=== PATIENT | female | born 2000 | race Hispanic/Latino ===

== ENCOUNTER 2024-03-19 04:02 | Emergency (ER) | payer BC ==
[~2024-03-19] VITALS: Ht 167.6 cm; Wt 121.6 kg
[2024-03-19 04:16] VITALS: TEMP 97.9
[2024-03-19] MEDS: MAG/ALUM/SIMETH 30 ML UDCUP PO ONE (04:22)
[2024-03-19] MEDS: LIDOCAINE HCL 2% VISCOUS 15 ML UDCUP PO ONE (04:22)
[2024-03-19] MEDS: PANTOPrazole 40 MG/VIAL IVP ONE (04:23)
[2024-03-19] MEDS: LACTATED RINGERS 1000ML 1,000 ML IV ONE (04:23)
[2024-03-19 04:25] LABS: BASOPHILS # (AUTO) 0.03 K/uL (0.00-0.20); BASOPHILS % (AUTO) 0.4 % (0.0-5.0); EOSINOPHILS # (AUTO) 0.24 K/uL (0.00-0.70); EOSINOPHILS % (AUTO) 3.3 % (0.0-8.0); HEMATOCRIT 37.5 % (36-48); IMMATURE GRANULOCYTE ABSOLUTE 0.02 K/uL (0-1); LYMPHOCYTES # (AUTO) 2.9 K/uL (1.0-4.8); LYMPHOCYTES % (AUTO) 39.8 % (21.0-51.0); MEAN CORPUSCULAR HEMOGLOBIN 23.8 pg (27.0-33.0); MEAN CORPUSCULAR HGB CONC 31.2 g/dL (32.0-36.0); MEAN CORPUSCULAR VOLUME 76.4 fL (79-99); MONOCYTES # (AUTO) 0.7 K/uL (0.1-1.0); MONOCYTES % (AUTO) 9.2 % (3.0-13.0); NEUTROPHILS # (AUTO) 3.5 K/uL (1.8-7.7); PLATELET COUNT (AUTO) 243 K/uL (130-400); RED BLOOD CELL COUNT(AUTO) 4.91 MIL/uL (4.00-5.50); RED CELL DISTRIBUTION WIDTH 15.2 % (11.0-15.5); WHITE BLOOD COUNT (AUTO) 7.4 K/uL (4.8-10.8)
--- NOTE | 2024-03-19 04:27 | ERN ---
General Chief Complaint: Abdominal Pain Stated Complaint: ABD PAIN, N/V Time Seen by MD: 04:04 Source: patient History of Present Illness Initial Comments Patient is a 23-year-old female coming in to be evaluated for epigastric pain. Patient states the pain woke her up in the morning at 2:00 a.m.. Patient states that she had this pain in two occasions in the past. No fever no chills. Allergies: Coded Allergies: No Known Allergies (Unverified Allergy, Unknown, 03/19/24) Past Medical History Past Medical History: No Pertinent History Past Surgical History: Other Surgical History Other: LEFT ANKLE Female( History) LMP: Jan 21, 2024 : 1 Para: 1 ROS Dictation CONSTITUTIONAL: No chills, no fever, no weakness, no diaphoresis, no malaise. HEAD/FACE: No signs of trauma. EENT: No eye pain, no blurred vision, no tearing, no double vision, no ear pain, no ear discharge, no nose pain, no nasal congestion, no throat pain, no throat swelling, no mouth pain. RESPIRATORY: No cough, no orthopnea, no SOB, no stridor, no wheezing. CARDIOVASCULAR: No chest pain, no edema, no palpitations, no syncope. GASTROINTESTINAL/ABDOMINAL: No abdominal pain, no constipation, no diarrhea, no nausea, no vomiting. GENITOURINARY: No abnormal discharge, no dysuria, no frequent urination, no hematuria. No complaints of pain in the genitals. MUSCULOSKELETAL: No back pain, no gout, no joint pain, no joint swelling, no muscle pain, no muscle stiffness, no neck pain. INTEGUMENTARY: No change in color, no change in hair/nails, no dryness, no lesion, no lumps, no rash. NEUROLOGICAL/PSYCH: No anxiety, not depressed, no emotional problem, no headache, no numbness, no pre-existing deficit, no history of seizures, no tremors, no weakness. HEMATOLOGIC/LYMPHATIC: Not anemic, no history of blood clots, no apparent bleeding, no bruising, glands not swollen. All Systems Negative, Except as Noted. Physical Exam Physical Exam Dictation VITAL SIGNS: Reviewed. GENERAL APPEARANCE: Alert, oriented x3, no acute distress, obese. HEAD AND FACE: Non-traumatic. EYES: PERRL, pink conjunctivas, eyelid no trauma, anterior chamber clear. EARS: Pinnas intact and no signs of trauma or erythema. Ear canals clear and no discharge. TMs no erythema. NOSE: No discharge, no bleeding. OROPHARYNX: Mouth normal, teeth no caries, tongue pink. Pharynx clear, no erythema. Tonsils no exudates, no abscesses noted. Mucous membrane moist. NECK: Supple, non-tender, no thyromegaly, no masses, no JVD, no bruits. BREAST: Deferred. CHEST: No tenderness, no crepitus, no paradoxical movement, no retractions. LUNGS: Clear, well-ventilated, symmetric, no rales, no wheezing, no rhonchi, no stridor, good breath sounds bilaterally. HEART: Regular rate, regular rhythm, no murmur, no gallops. VASCULAR: No peripheral edema. ABDOMEN: Soft, positive bowel sounds, nondistended, epigastric discomfort on palpation RECTAL: Deferred. GENITAL: Deferred. NEUROLOGICAL: Normal speech, gross motor function intact, gross sensory function intact. MUSCULOSKELETAL: Neck nontender, full range of motion, back nontender, full range of motion. EXTREMITIES: Nontender, full range of motion. SKIN: Color pink, dry, no turgor, no rash, no lacerations, no abrasions, no contusions. LYMPHATICS: Deferred. Results Laboratory and Microbiology Lab and Micro Result Laboratory Tests Test 03/19/24 04:12 03/19/24 04:29 White Blood Count 7.4 K/uL (4.8-10.8) Red Blood Count 4.91 MIL/uL (4.00-5.50) Hemoglobin 11.7 g/dL (12.0-16.0) L Hematocrit 37.5 % (36-48) Mean Corpuscular Volume 76.4 fL (79-99) L Mean Corpuscular Hemoglobin 23.8 pg (27.0-33.0) L Mean Corpuscular Hemoglobin Concent 31.2 g/dL (32.0-36.0) L Red Cell Distribution Width 15.2 % (11.0-15.5) Platelet Count 243 K/uL (130-400) Mean Platelet Volume 10.5 fL (7.5-10.5) Immature Granulocyte % (Auto) 0.3 % (0-1) Neutrophils (%) (Auto) 47.0 % (40.0-77.0) Lymphocytes (%) (Auto) 39.8 % (21.0-51.0) Monocytes (%) (Auto) 9.2 % (3.0-13.0) Eosinophils (%) (Auto) 3.3 % (0.0-8.0) Basophils (%) (Auto) 0.4 % (0.0-5.0) Neutrophils # (Auto) 3.5 K/uL (1.8-7.7) Lymphocytes # (Auto) 2.9 K/uL (1.0-4.8) Monocytes # (Auto) 0.7 K/uL (0.1-1.0) Eosinophils # (Auto) 0.24 K/uL (0.00-0.70) Basophils # (Auto) 0.03 K/uL (0.00-0.20) Absolute Immature Granulocyte (auto 0.02 K/uL (0-1) Nucleated Red Blood Cells 0.0 % (0.0-0.19) Red Blood Cell Morphology See comments Sodium Level 135 mmol/L (136-145) L Potassium Level 3.7 mmol/L (3.5-5.1) Chloride Level 103 mmol/L (101-111) Carbon Dioxide Level 27 mmol/L (21-32) Blood Urea Nitrogen 17 mg/dL (7-18) Creatinine 0.9 mg/dL (0.5-1.0) Glomerular Filtration Rate Calc 91 mL/min (>90) Random Glucose 111 mg/dL (70-105) H Total Calcium 8.9 mg/dL (8.5-10.1) Total Bilirubin 0.3 mg/dL (0.2-1.0) Aspartate Amino Transf (AST/SGOT) 23 U/L (10-37) Alanine Aminotransferase (ALT/SGPT) 38 U/L (12-78) Alkaline Phosphatase 95 U/L (50-136) Total Protein 7.6 g/dL (6.0-8.3) Albumin 3.8 g/dL (3.5-5.0) Lipase 37 U/L (16-77) Urine Color YELLOW (YELLOW) Urine Appearance CLOUDY (CLEAR) H Urine pH 6.0 (5.0-8.0) Urine Specific [place] 1.034 (1.001-1.031) Urine Protein 30 mg/dL (NEGATIVE) H Urine Glucose (UA) NEGATIVE mg/dL (NEGATIVE) Urine Ketones NEGATIVE mg/dL (NEGATIVE) Urine Occult Blood NEGATIVE (NEGATIVE) Urine Nitrate NEGATIVE (NEGATIVE) Urine Bilirubin NEGATIVE mg/dL (NEGATIVE) Urine Urobilinogen 0.2 mg/dL (0.2-1.0) Urine Leukocyte Esterase 75 Gerry/uL (NEGATIVE) H Urine HCG, Qualitative NEGATIVE (NEGATIVE) Urine Opiates Screen NEGATIVE (NEGATIVE) Urine Barbiturates Screen NEGATIVE (NEGATIVE) Urine Phencyclidine Screen NEGATIVE (NEGATIVE) Urine Amphetamines Screen NEGATIVE (NEGATIVE) Urine Benzodiazepines Screen NEGATIVE (NEGATIVE) Urine Cocaine Screen NEGATIVE (NEGATIVE) Urine Marijuana (THC) Screen NEGATIVE (NEGATIVE) Labs Reviewed?: Yes EKG/XRAY/US/CT/MRI EKG Comment 03/19/2024 time 4:18 a.m. Ventricular rate [address] Normal sinus rhythm No ST wave elevation or depression [place] 142 MDM MDM: Differential diagnosis:uti, gastrtitis Rationale: Tests considered and ordered secondary to shared decision making inc lude: Previous outside records reviewed: Old ER visits. Risk of complication and/or morbidity or mortality of patient management: None Medications-Per medication reconciliation Need for hospitalization: Patient does not meet criteria for hospitalization. Need for emergency major/minor surgery: No There are no social concerns with this patient. Prescription drug management Prescriptions will include symptomatic care Patient's prior external medical records from other ER visits were reviewed by me as indicated. Prior testing and results from previous visits were reviewed. Prior tests were taken into account with medical decision making and resource utilization, independent historian/historians were used to obtain complete medical history. I independently interpreted the test that were performed, results were reviewed by me and considered findings on radiology if ordered. Medical management and examination interpretation discussions were had by me with other qualified healthcare professionals as indicated for the patient's care. Patient is a 23-year-old female coming in to be evaluated for epigastric pain. Laboratory workup negative except for a UTI. Patient will be discharged with oral antibiotics as well as Protonix for gastritis. She will be discharged in stable condition, I advised her appropriate follow up with PCP in 1-2 days for ED Course Orders Procedure Category Date Status Time Cbc With Differential LAB 03/19/24 Complete 04:06 Comprehensive LAB 03/19/24 Complete Metabolic Panel 04:06 Urinalysis Profile LAB 03/19/24 In Process 04:06 12 Lead Ekg Tracing- EKG 03/19/24 Logged Technical 04:06 Lactated Ringers PHA 03/19/24 In Process 1000ml (Lactated 04:30 Lidocaine Hcl 2% PHA 03/19/24 In Process Viscous (Lidocaine Hcl 04:30 Mag/Alum/Simeth 30ml PHA 03/19/24 In Process (Maalox Plus 30ml) 04:30 Pantoprazole 40mg Inj PHA 03/19/24 In Process (Protonix 40mg Inj 04:30 Lipase LAB 03/19/24 Complete 04:06 Culture Urine ALIZA 03/19/24 In Process 05:19 ,Urine Test LAB 03/19/24 Complete 05:34 Drug Screen Urine LAB 03/19/24 Complete 05:34 Ketorolac PHA 03/19/24 In Process Tromethamine 30mg/Ml 06:00 Current Medications Medications (Trade) Dose Ordered Sig/Lesly Route PRN Reason Start Time Stop Time Status Last Admin Dose Admin Al Hydroxide/Mg Hydroxide (MAALox PLUS 30ML) 30 ml ONCE ONCE PO 03/19/24 04:30 03/19/24 04:31 03/19/24 04:22 Ketorolac Tromethamine (toRADol) 30 mg ONCE ONCE IVP 03/19/24 06:00 03/19/24 06:01 03/19/24 05:54 Lactated Ringer's 1,000 ml @ 0 mls/hr ONCE ONCE IV 03/19/24 04:30 03/19/24 04:31 03/19/24 04:23 Lidocaine HCl (Lidocaine HCl 2% Viscous) 10 ml ONCE ONCE PO 03/19/24 04:30 03/19/24 04:31 03/19/24 04:22 Pantoprazole Sodium (PROTonix 40MG INJ) 40 mg ONCE ONCE IVP 03/19/24 04:30 03/19/24 04:31 03/19/24 04:23 Vital Signs Date Time Temp Pulse Resp B/P (MAP) Pulse Ox O2 Delivery O2 Flow Rate FiO2 03/19/24 04:56 70 18 109/55 99 Room Air* 0 03/19/24 04:16 97.9 72 18 114/50 99 Room Air* 0 03/19/24 04:03 97.0 90 18 127/75 98 Room Air DX & DISP Disposition: Discharge Departure Impression: Primary Impression: UTI (urinary tract infection) Additional Impression: Gastritis Condition: Stable Scripts Cephalexin Monohydrate (Keflex) 500 Mg Cap 500 MG PO BID for 10 Days, #20 CAP Prov: AUGUST VELASQUEZ MD 03/19/24 Pantoprazole Sodium (Protonix) 40 Mg Ectab 40 MG PO DAILY for 30 Days, #30 TAB.EC Prov: AUGUST VELASQUEZ MD 03/19/24 Additional Instructions: FOLLOW-UP WITH PRIMARY CARE PROVIDER IN 1 TO 2 DAYS. TAKE MEDICATIONS DIRECTED HERE IN THE EMERGENCY ROOM. OKAY TO CONTINUE HOME MEDICATIONS UNLESS OTHERWISE DISCUSSED DURING YOUR VISIT IN THE EMERGENCY ROOM TODAY. RETURN TO YOUR NEAREST EMERGENCY ROOM IF SYMPTOMS WORSEN OR IF THERE IS NO IMPROVEMENT. CALL 911 IF YOU NEED IMMEDIATE ASSISTANCE. TAKE TYLENOL [id number] NEEDED AND IF NO CONTRAINDICATIONS ARE PRESENT. INCREASE ORAL HYDRATION. A WOUND CULTURE OR URINE CULTURE WAS ORDERED HERE IN THE EMERGENCY ROOM DEPARTMENT PLEASE FOLLOW-UP WITH PRIMARY CARE PROVIDER AND ADVISE THEM TO GET REPEAT PORTS FROM OUR FACILITY. IF YOU HAD ANY ESCOBAR WRAP/SPLINTS THAT WERE APPLIED HERE, PLEASE DO NOT REMOVE THEM UNTIL YOU SEE YOUR PRIMARY CARE OR SPECIALTY. Referrals: Referrals: LISETH MOLINA MD Time of Disposition: 06:01 AUGUST VELASQUEZ MD Mar 19, 2024 04:27
[2024-03-19 04:35] LABS: CREATININE 0.9 mg/dL (0.5-1.0); POTASSIUM 3.7 mmol/L (3.5-5.1)
[2024-03-19 04:41] LABS: ALBUMIN 3.8 g/dL (3.5-5.0); BILIRUBIN,TOTAL 0.3 mg/dL (0.2-1.0); TOTAL PROTEIN, SERUM 7.6 g/dL (6.0-8.3)
[2024-03-19 05:14] LABS: APPEARANCE,URINE CLOUDY (CLEAR); BILIRUBIN,URINE NEGATIVE (NEGATIVE); COLOR,URINE YELLOW (YELLOW); GLUCOSE, URINE (UA) NEGATIVE (NEGATIVE); KETONES,URINE NEGATIVE (NEGATIVE); LEUKOCYTE ESTERASE ,URINE 75 Leu/uL (NEGATIVE); NITRATE,URINE NEGATIVE (NEGATIVE); OCCULT BLOOD,URINE NEGATIVE (NEGATIVE); PROTEIN,URINE 30 mg/dL (NEGATIVE); UROBILINOGEN,URINE 0.2 mg/dL (0.2-1.0)
[2024-03-19 05:19] LABS: ADD UA MICROSCOPIC YES
[2024-03-19 05:44] LABS: HCG,QUALITATIVE URINE NEGATIVE (NEGATIVE)
[2024-03-19 05:50] LABS: AMPHET/METH SCREEN,URINE NEGATIVE (NEGATIVE); BARBITURATE SCREEN, URINE NEGATIVE (NEGATIVE); BENZODIAZEPINES SCREEN,URINE NEGATIVE (NEGATIVE); CANNABINOID SCREEN,URINE NEGATIVE (NEGATIVE); COCAINE SCREEN,URINE NEGATIVE (NEGATIVE); OPIATE SCREEN,URINE NEGATIVE (NEGATIVE); PHENCYCLIDINE SCREEN,URINE NEGATIVE (NEGATIVE)
[2024-03-19] MEDS: ketOROlac 30MG VIAL (30MG/ML) IVP ONE (05:54)
[2024-03-19] MEDS ORDERED: CEPH500B PO (06:02)
[2024-03-19] MEDS ORDERED: PANT40TA55 PO (06:02)
[2024-03-19 06:03] LABS: BACTERIA,URINE FEW /HPF (None Seen); MUCUS,URINE FEW LPF (None Seen); SQUAMOUS EPITHELIAL CELL,UR MANY /HPF (0-2)
[2024-03-19 06:54] VITALS: BP 120/69; PULSE 72; RESP 18; O2SAT 98
--- NOTE | 2024-03-19 09:33 | EKG ---
[facility] Test Date: 2024-03-19 Test Time: 04:18:31 Pat Name: LATHA REAL Department: ED Room: Gender: F Chief Nuclear Medicine Technologist: [id number] : 2000 Requested By: AUGUST VELASQUEZ Order Number: [id number] Reading MD: Aguilar Espinal Measurements Intervals [place] Rate: 73 P: 18 NM: 142 QRS: 3 QRSD: 81 T: 9 QT: 381 QTc: 419 Interpretive Statements Sinus rhythm Low voltage, precordial leads No previous ECG available for comparison Electronically Signed On 03-19-2024 14:54:13 CDT by Aguilar Espinal Please click the below link to view image of tracing.
== END 2024-03-19 07:02 | disposition home or self-care (01) ==
LOC: EDH 04:02
DX: N39.0 Urinary tract infection, site not specified (principal); K29.70 Gastritis, unspecified, without bleeding; Z79.899 Other long term (current) drug therapy
CPT/HCPCS: 99284; 96374; 96361; 96375; 80053; 80305; 83690; 85025; 87086; 81025; 36415; 93005; 81001; J7120; J1885; J2470